=== PATIENT | female | born 1950 | race Two or more races ===

== ENCOUNTER 2017-11-16 13:37 | Inpatient (IN) | payer MEDICARE, OTHER ==
[~2017-11-16] VITALS: Ht 160 cm; Wt 65.8 kg
[2017-11-16 13:41] VITALS: BP 146/84
[2017-11-16] MEDS ORDERED: Morphine Sulfate 4mg/ml Inj IVP ONE ×2 (13:45→14:45)
--- NOTE | 2017-11-16 13:48 | Emergency Room Report ---
History of Present Illness General Chief Complaint: Abdominal Pain Source: Patient Present Illness HPI The patient presents with abdominal pain. Started yesterday. It's constant and 9/10 burning pressure epigastric not radiating. She's been vomiting bile- like material. She moved her bowels this morning - the stool was normal. There is no diarrhea. Patient denies dysuria. She feels cold but has no documented fevers. She states this is never happened to her before. No URI sy. No cough, shortness of breath, palpitations. She does feel weak. She has been out of her cardiac meds for 1-2 weeks. She denies prior IN or CHF. No rashes, headache, anxiety. H/O HTN. Denies diabetes though EMS lists as med problem.. Allergies: Coded Allergies: No Known Allergies (Unverified , 11/16/17) Patient History Past Medical History: see triage record Past Surgical History: other - R renal stent Social History: Reports: smoking - prior, alcohol use - social Social History Narrative retired - born in [place] Reviewed Nursing Documentation: PMH: Agreed; PSxH: Agreed Nursing Documentation-PMH Past Medical History: No History, Except For Hx Hypertension: Yes Review of Systems All Other Systems: negative except mentioned in HPI Physical Exam Vital Signs Date Time Temp Pulse Resp B/P (MAP) Pulse Ox O2 Delivery O2 Flow Rate FiO2 11/16/17 13:31 99.1 84 19 144/96 96 Room Air 99.1 Sp02 EP Interpretation: reviewed, normal General Appearance: alert, GCS 15, mild distress Head: normocephalic Eyes: bilateral eye normal inspection, bilateral eye PERRL ENT: moist mucus membranes - poor dentition Neck: supple Respiratory: lungs clear, normal breath sounds Cardiovascular #1: regular rate, rhythm Cardiovascular #2: 2+ radial (R) Gastrointestinal: no mass, non-distended, no guarding, no rebound, tenderness - epigastric, decreased bowel sounds Musculoskeletal: back normal, normal range of motion Neurologic: alert, motor strength/tone normal, DTRs symmetric, sensory intact, speech normal, oriented - X2 Psychiatric: anxious - in pain Skin: warm/dry, other - sallo Medical Decision Making Diagnostic Impression: Primary Impression: NSTEMI (non-ST elevated myocardial infarction) Additional Impressions: UTI (urinary tract infection) Qualified Codes: N30.00 - Acute cystitis without hematuria Abdominal pain Qualified Codes: R10.13 - Epigastric pain ER Course Patient presents with 2 days of epigastric abdominal pain. Differential includes gastritis, gastroenteritis, pancreatitis, peptic ulcer disease, gallbladder disease, acute myocardial infarction amongst others. The patient will be evaluated with an EKG, abdominal films, chest x-ray and labs. The patient will be treated with IV hydration, Zofran, Pepcid and morphine. EKG shows no injury. Chest x-ray is unremarkable. Abdominal films shows renal stent on the right-hand side and nonspecific bowel gas pattern. No free air. Elevated WBC and BUN. Pyuria. Rocephin begun. Lab called with positive troponin. The patient was given aspirin. She was still having pain and morphine was repeated. After that metoprolol was also given to the patient. The pain was quite improved. The patient was told diagnosis. Patient admitted [facility] under the care of Dr. Rosenberg. Laboratory Tests Test 11/16/17 13:45 11/16/17 14:25 11/16/17 17:55 White Blood Count 11.6 K/UL (4.8-10.8) H Red Blood Count 3.78 M/UL (4.20-5.40) L Hemoglobin 12.2 G/DL (12.0-16.0) Hematocrit 36.4 % (37.0-47.0) L Mean Corpuscular Volume 96 FL (80-99) Mean Corpuscular Hemoglobin 32.3 PG (27.0-31.0) H Mean Corpuscular Hemoglobin Concent 33.5 G/DL (32.0-36.0) Red Cell Distribution Width 12.0 % (11.6-14.8) Platelet Count 346 K/UL (150-450) Mean Platelet Volume 5.9 FL (6.5-10.1) L Neutrophils (%) (Auto) % (45.0-75.0) Lymphocytes (%) (Auto) % (20.0-45.0) Monocytes (%) (Auto) % (1.0-10.0) Eosinophils (%) (Auto) % (0.0-3.0) Basophils (%) (Auto) % (0.0-2.0) Differential Total Cells Counted 100 Neutrophils % (Manual) 88 % (45-75) H Lymphocytes % (Manual) 6 % (20-45) L Monocytes % (Manual) 6 % (1-10) Eosinophils % (Manual) 0 % (0-3) Basophils % (Manual) 0 % (0-2) Band Neutrophils 0 % (0-8) Platelet Estimate Adequate Platelet Morphology Normal Red Blood Cell Morphology Normal Prothrombin Time 10.1 SEC (9.30-11.50) Prothrombin Time INR 1.0 (0.9-1.1) PTT 25 SEC (23-33) Sodium Level 135 MMOL/L (136-145) L Potassium Level 4.0 MMOL/L (3.5-5.1) Chloride Level 101 MMOL/L (98-107) Carbon Dioxide Level 25 MMOL/L (21-32) Anion Gap 9 mmol/L (5-15) Blood Urea Nitrogen 24 mg/dL (7-18) H Creatinine 1.1 MG/DL (0.55-1.30) Estimate Glomerular Filtration Rate 49.6 mL/min (>60) Glucose Level 103 MG/DL (74-106) Calcium Level 10.3 MG/DL (8.5-10.1) H Total Bilirubin 1.5 MG/DL (0.2-1.0) H Direct Bilirubin 0.3 MG/DL (0.0-0.3) Aspartate Amino Transferase (AST) 38 U/L (15-37) H Alanine Aminotransferase (ALT) 36 U/L (12-78) Alkaline Phosphatase 92 U/L (46-116) Troponin I 0.058 ng/mL (0.000-0.056) 0.064 ng/mL (0.000-0.056) Total Protein 7.4 G/DL (6.4-8.2) Albumin 3.6 G/DL (3.4-5.0) Globulin 3.8 g/dL Albumin/Globulin Ratio 0.9 (1.0-2.7) L Lipase 212 U/L (73-393) Urine Color Pale yellow Urine Appearance Clear Urine pH 8 (4.5-8.0) Urine Specific [place] 1.010 (1.005-1.035) Urine Protein 3+ (NEGATIVE) H Urine Glucose (UA) Negative (NEGATIVE) Urine Ketones 2+ (NEGATIVE) H Urine Occult Blood 4+ (NEGATIVE) H Urine Nitrite Positive (NEGATIVE) H Urine Bilirubin Negative (NEGATIVE) Urine Urobilinogen Normal MG/DL (0.0-1.0) Urine Leukocyte Esterase 3+ (NEGATIVE) H Urine RBC 10-15 /HPF (0 - 2) H Urine WBC 40-60 /HPF (0 - 2) H Urine Squamous Epithelial Cells Few /LPF (NONE/OCC) Urine Bacteria Few /HPF (NONE) Total Creatine Kinase 344 U/L (26-308) H EKG Diagnostic Results Rate: normal Rhythm: NSR ST Segments: no acute changes Rhythm Strip Diag. Results EP Interpretation: yes Rhythm: NSR, no PVC's, no ectopy Chest X-Ray Diagnostic Results Chest X-Ray Diagnostic Results : Chest X-Ray Ordered: Yes # of Views/Limited/Complete: 1 View Indication: Other Interpretation: no consolidation, no effusion, no pneumothorax Impression: No acute disease Electronically Signed by: Electronically signed by Alejandro Mcleod MD Other X-Ray Diagnostic Results Other X-Ray Diagnostic Results : X-Ray ordered: abd # of Views/Limited Vs Complete: 1 View Indication: Pain EP Interpretation: Yes Interpretation: nonspecific bowel gas, no sbo, other - stent R kidney Impression: Other Electronically Signed by: Electronically signed by Alejandro Mcleod MD Last Vital Signs Date Time Temp Pulse Resp B/P (MAP) Pulse Ox O2 Delivery O2 Flow Rate FiO2 11/16/17 19:41 98.3 68 18 140/74 99 Room Air 98.3 Status: improved Disposition: ADMITTED INPATIENT Condition: Serious Alejandro Mcleod M.D. Nov 16, 2017 13:48
[2017-11-16 14:11] LABS: HEMATOCRIT 36.4 % (37.0-47.0); HEMOGLOBIN 12.2 G/DL (12.0-16.0); MEAN CORPUSCULAR VOLUME 96 FL (80-99); PLATELET COUNT 346 K/UL (150-450); RED BLOOD COUNT 3.78 M/UL (4.20-5.40); WHITE BLOOD COUNT 11.6 K/UL (4.8-10.8)
[2017-11-16 14:23] LABS: ANION GAP 9 mmol/L (5-15); BLOOD UREA NITROGEN 24 mg/dL (7-18); CALCIUM 10.3 MG/DL (8.5-10.1); CARBON DIOXIDE 25 MMOL/L (21-32); CHLORIDE 101 MMOL/L (98-107); CREATININE 1.1 MG/DL (0.55-1.30); SODIUM 135 MMOL/L (136-145)
[2017-11-16 14:33] LABS: ALANINE AMINOTRANSFERASE 36 U/L (12-78); ALBUMIN 3.6 G/DL (3.4-5.0); ALBUMIN/GLOBULIN RATIO 0.9 (1.0-2.7); ALKALINE PHOSPHATASE 92 U/L (46-116); ASPARTATE AMINO TRANSFERASE 38 U/L (15-37); BILIRUBIN,TOTAL 1.5 MG/DL (0.2-1.0)
[2017-11-16 14:35] LABS: BILIRUBIN,DIRECT 0.3 MG/DL (0.0-0.3)
[2017-11-16 14:54] LABS: APPEARANCE,URINE CLEAR; BILIRUBIN, URINE NEGATIVE (NEGATIVE); COLOR,URINE PALE YELLOW; GLUCOSE, URINE (UA) NEGATIVE (NEGATIVE); KETONES,URINE 2+ (NEGATIVE); LEUKOCYTE ESTERASE ,URINE 3+ (NEGATIVE); NITRITE,URINE POSITIVE (NEGATIVE); PH,URINE 8 (4.5-8.0); PROTEIN,URINE 3+ (NEGATIVE); UROBILINOGEN,URINE NORMAL MG/DL (0.0-1.0)
[2017-11-16] MEDS: Metoprolol 5mg/5ml Inj IVP SCH ×3 (15:15→15:40)
[2017-11-16] MEDS ORDERED: cefTRIAXone 1 GM in NS 55 ML IVPB ONE (15:30)
[2017-11-16 16:00] VITALS: BP 127/72
[2017-11-16] MEDS ORDERED: LORazepam 1mg tab ORAL PRN (16:15)
[2017-11-16] MEDS ORDERED: Morphine Sulfate 2mg/ml Inj IVP PRN (16:15)
[2017-11-16] MEDS ORDERED: Morphine Sulfate 4mg/ml Inj IVP PRN (16:15)
[2017-11-16] MEDS ORDERED: Nitroglycerin Subl 0.4mg tab SL PRN (16:15)
[2017-11-16] MEDS ORDERED: Acetaminophen 650 MG SUPP RECTAL PRN ×2 (16:15)
[2017-11-16] MEDS: Lisinopril 20mg tab ORAL SCH (16:46)
[2017-11-16 18:00] VITALS: BP 148/80
[2017-11-16 19:31] LABS: CREATINE KINASE 344 U/L (26-308)
[2017-11-16 19:41] VITALS: BP 140/74
[2017-11-16] MEDS ORDERED: NORCO 10-325 T1 EACH ORAL (19:53)
[2017-11-16 20:20] VITALS: BP 133/83
[2017-11-16] MEDS ORDERED: Milk of Magnesia 30ml Ud ORAL PRN (21:00)
--- NOTE | 2017-11-16 22:00 | History and Physical Report ---
DATE OF ADMISSION: 11/16/2017 CHIEF COMPLAINT/REASON FOR HOSPITALIZATION: The patient admitted with abdominal pain, possible chest pain, possible acute myocardial infarction. HISTORY OF PRESENT ILLNESS: The patient is a 67-year-old lady, born in [place] who has a history of hypertension and urinary stent and prior UTIs. She states she is having epigastric and suprapubic pain and she has had pyuria. She had elevated troponin in the emergency room of 0.058. There is no prior history of coronary disease, but she has a history of hypertension. She has been out of medications apparently for quite some time due to insurance issues. SURGICAL HISTORY: Tonsillectomy and ureteral stent. MEDICATIONS AT HOME: Include lisinopril 40 mg daily, isosorbide 5 mg b.i.d. and atenolol 50 mg daily, all of which she is not taking for quite some time. ALLERGIES: None known. HABITS: She smoked occasionally, was not a regular smoker, but has had secondhand smoker. Alcohol, social. Drugs, none. REVIEW OF SYSTEMS: HEAD, EYES, EARS, NOSE, AND THROAT: Vision and hearing is good. ENDOCRINE: No known diabetes or thyroid disease. PULMONARY: No asthma, TB, or chronic cough. CARDIAC: See history of present illness. No history of cardiac events. GASTROINTESTINAL: She has had some epigastric pains. Recent nausea and vomiting. No hematochezia or melena. GENITOURINARY: She had urinary frequency, dysuria and incontinence. Addendum - she has had renal stone before apparently. NEUROLOGIC: No CVA, syncope or seizures. PHYSICAL EXAMINATION: GENERAL: The patient is an alert, well-developed lady, in no acute distress. VITAL SIGNS: Temperature 99.1 degrees, pulse 84, blood pressure 145/69, and pulse oximetry 96% on room air. HEAD, EYES, EARS, NOSE, AND THROAT: Sclerae are nonicteric. Ocular motions intact in all directions. She is edentulous. NECK: No adenopathy or thyroid enlargement. LUNGS: Clear. HEART: Regular rhythm. No murmur. ABDOMEN: Soft without organomegaly. There is minimal suprapubic tenderness. Liver and spleen and epigastric showed no tenderness. NEUROLOGIC: She is alert and oriented. Cranial nerves are intact. EXTREMITIES: No edema, cyanosis, or clubbing. LABORATORY AND DIAGNOSTIC DATA: Pertinent labs showed normal electrolytes, glucose 103, calcium 10.3, total bilirubin 1.5. AST 38. Troponin 0.058. Lipase 212. White count 11.6 and hemoglobin is 12.2. Urine shows 40 to 60 white cells and 10 to 15 red cells per high-power field. Chest x-ray shows some mild pulmonary vascular redistribution. EKG normal. IMPRESSION: 1. Borderline troponin, possible acute coronary syndrome versus non-coronary cause of . 2. Epigastric pain. 3. Mild elevation of bilirubin. 4. Suprapubic pain and pyuria. 5. History of ureteral stent. PLAN: The patient will be treated as acute acute coronary syndrome with a cardiology consultation. We will also check abdominal ultrasound, give her treatment for possible UTI, possible cholecystitis. The patient's condition is complex. She will be watched closely on the telemetry unit. Reza Rosenberg M.D. DR: HILLARY JOB#: [id number] CC:
[2017-11-16] MEDS: Metoprolol 25mg tab ORAL SCH (22:14)
[2017-11-16] MEDS: Heparin 5000 units/ml inj SUBQ SCH (22:15)
[2017-11-16] MEDS: Augmentin 875mg Tab ORAL SCH (22:36)
[2017-11-17] VITALS: BP 146/82
[2017-11-17 04:00] VITALS: BP 116/54
--- NOTE | 2017-11-17 04:15 | Consultation ---
DATE OF CONSULTATION: 11/16/2017 CARDIOLOGY CONSULTATION REQUESTING PHYSICIAN: Reza Rosenberg M.D. REASON FOR CONSULTATION: Elevated troponin level. HISTORY OF PRESENT ILLNESS: This 67-year-old Stateless [place] female presented to the emergency room complaining of midepigastric, suprapubic and possible chest pain. She was noted to have a troponin level of 0.058. There is no prior history of coronary disease, but the patient has risk factors including hypertension. PAST MEDICAL HISTORY: Hypertension and history of urinary stent with multiple urinary tract infections. MEDICATIONS: Previously prescribed include lisinopril, isosorbide, and atenolol, although she has not been taking any medications for quite sometime as she has not been able to get them. ALLERGIES: None known. SOCIAL HISTORY: Occasional smoking. Significant secondhand smoke. Social alcohol. No illicit drug use. FAMILY HISTORY: Noncontributory. REVIEW OF SYSTEMS: No loss of vision or hearing. No known history of diabetes or thyroid disorder. No history of seizures or stroke. No known prior history of myocardial infarction, endocarditis, or rheumatic heart disease. No history of irregular heartbeat. Cholesterol parameters not known. There is no history of melena, bright red blood per rectum, or change in bowel habits. PHYSICAL EXAMINATION: GENERAL: Awake, alert, in no distress. VITAL SIGNS: Temperature 99.1 degrees, blood pressure 145/69, heart rate 84, respiratory rate 18, and room air oxygen saturation 96%. HEENT: Normocephalic and atraumatic. Conjunctivae pink. Sclerae are anicteric. Oropharynx clear. Edentulous. NECK: Supple. Jugular venous pressure normal. LUNGS: Clear. CARDIAC: Regular rhythm and rate. Normal S1 and S2 with no murmur, rub, or gallop. ABDOMEN: Soft and nontender. EXTREMITIES: Good pulses. No edema. NEUROLOGIC: Nonfocal. LABORATORY AND DIAGNOSTIC DATA: Troponin is 0.058. White count 11.6 and hemoglobin 12.2. Chest x-ray reveals mild pulmonary venous congestion. EKG reveals sinus rhythm with no acute abnormalities. Lipase level is slightly elevated, 212. IMPRESSION: The patient presents with symptoms not typical for acute coronary insufficiency and has a minimally elevated troponin level with some risk factors for coronary disease as well. She possibly has an acute coronary syndrome or noncoronary etiology for this troponin elevation. She needs to be monitored closely in at this time. Other concerns include her epigastric pain, suprapubic pain, and pyuria suggesting urinary infection in the setting of ureteral stent. Hypertension is controlled at this time. PLAN: 1. Cardiac monitoring. 2. Antiplatelet therapy. 3. Antihypertensives. 4. Lipid panel. 5. Serial troponin levels. 6. Antimicrobials per the primary physician. 7. Beta-vadim therapy as well. Alejandro De Anda M.D. DR: Dano JOB#: [id number] CC:
[2017-11-17 04:42] LABS: HEMATOCRIT 31.9 % (37.0-47.0); HEMOGLOBIN 10.8 G/DL (12.0-16.0); MEAN CORPUSCULAR VOLUME 97 FL (80-99); PLATELET COUNT 291 K/UL (150-450); RED BLOOD COUNT 3.28 M/UL (4.20-5.40); RED CELL DISTRIBUTION WIDTH 12.8 % (11.6-14.8); WHITE BLOOD COUNT 10.2 K/UL (4.8-10.8)
[2017-11-17 05:30] LABS: ALANINE AMINOTRANSFERASE 30 U/L (12-78); ALBUMIN 2.8 G/DL (3.4-5.0); ALBUMIN/GLOBULIN RATIO 0.8 (1.0-2.7); ALKALINE PHOSPHATASE 75 U/L (46-116); ANION GAP 9 mmol/L (5-15); ASPARTATE AMINO TRANSFERASE 24 U/L (15-37); BILIRUBIN,TOTAL 1.3 MG/DL (0.2-1.0); BLOOD UREA NITROGEN 16 mg/dL (7-18); CALCIUM 9.7 MG/DL (8.5-10.1); CARBON DIOXIDE 23 MMOL/L (21-32); CHLORIDE 105 MMOL/L (98-107); CHOLESTEROL 176 MG/DL (< 200); CREATINE KINASE 185 U/L (26-308); CREATININE 1.1 MG/DL (0.55-1.30); HDL CHOLESTEROL 65 MG/DL (40-60); POTASSIUM 3.9 MMOL/L (3.5-5.1); SODIUM 137 MMOL/L (136-145); TRIGLYCERIDES 43 MG/DL (30-150)
[2017-11-17 05:57] LABS: BILIRUBIN,DIRECT 0.2 MG/DL (0.0-0.3)
[2017-11-17] MEDS: Lisinopril 20mg tab ORAL SCH ×2 (06:28→12:16)
[2017-11-17 08:00] VITALS: BP 116/57
[2017-11-17] MEDS: Metoprolol 25mg tab ORAL SCH (09:00)
[2017-11-17] MEDS ORDERED: Aspirin Baby 81mg ORAL SCH (09:00)
--- NOTE | 2017-11-17 09:01 | Diagnostic Imaging Report ---
Indication: Chest pain Technique: One view of the chest Comparison: none Findings: There are multiple healed right rib fracture deformities. The lungs and pleural spaces are clear. The heart size is normal. The aorta is tortuous. Upper mediastinum is unremarkable Impression: No acute process
--- NOTE | 2017-11-17 09:09 | Diagnostic Imaging Report ---
Indication: Abdominal pain Technique: Supine view of the abdomen Comparison: none Findings: There is a right nephroureteral stent. Centered within the proximal pigtail is a calculus which also extends slightly to the periphery of the pigtail of the catheter is well, measures approximately 2 cm diameter. Surrounding the distal pigtail is a large bladder calculus which measures 4.5 x 3.4 cm, with a tail extending to the ureteral orifice. The bowel gas pattern is unremarkable. Impression: No acute abnormality Right nephroureteral stent in place Large bladder calculus, presumably surrounding the distal end of the stent Large right renal calculus, appears to be related to the proximal end of the stent
[2017-11-17] MEDS: Augmentin 875mg Tab ORAL SCH (09:25)
[2017-11-17] MEDS: Heparin 5000 units/ml inj SUBQ SCH (09:27)
[2017-11-17 12:00] VITALS: BP 132/73
--- NOTE | 2017-11-17 14:17 | Diagnostic Imaging Report ---
Indication: Abdominal pain, vomiting, abnormal bilirubin Technique: Soto-scale and duplex images of the upper abdomen were obtained Comparison: Reference made to plain radiograph of 11/16/2017 Findings: Gallbladder demonstrates mild wall thickening. No definite stones or pericholecystic fluid. Common bile duct measures 9 mm in diameter. There is intrahepatic biliary ductal dilatation also noted. Liver demonstrates coarsened echogenicity, no focal abnormality. Portal vein and hepatic veins are patent. Pancreas is unremarkable. Spleen is unremarkable. Left kidney measures 11 cm in length. Right kidney measures 9.8 cm length. Both kidneys demonstrate normal echogenicity. There is mild left hydronephrosis and moderate right hydronephrosis. Shadowing from the right renal calculus demonstrated on recent radiograph is demonstrated. There are one or urinary bladder calculi. The smaller of these appears to be at the right ureteral orifice. A left ureteral jet is demonstrated. Non-aneurysmal abdominal aorta . Impression: Bilateral hydronephrosis, right greater than left. Absence of the right ureteral jet and the right hydronephrosis indicates likely malfunction of the right ureteral stent demonstrated on recent plain radiograph Bladder calculus or calculi, larger appearing to project into the right ureteral orifice, concordant with the appearance on recent plain radiograph Mild gallbladder wall thickening but no definite stones. Significance of the wall thickening uncertain, but the possibility of acute cholecystitis, either a calculus or due to an occult stone, should be considered. Consider further evaluation with nuclear medicine hepatobiliary scan Extrahepatic and intrahepatic biliary ductal dilatation. Possibly downstream biliary obstruction be considered. Coarsened hepatic echogenicity, consistent with hepatocellular disease, nonspecific as regards etiology. Findings discussed by phone with Dr. Rosenberg at the time of interpretation
[2017-11-17] MEDS ORDERED: TOPROL XL25 MG ORAL (15:41)
[2017-11-17] MEDS ORDERED: FAMOTIDINE20 MG ORAL (15:41)
[2017-11-17] MEDS ORDERED: AMOX TR-K CLV1 EAC2 ORAL (15:41)
[2017-11-17] MEDS ORDERED: ASPIRIN81 MG ORAL (15:41)
[2017-11-17 16:00] VITALS: BP 112/57
--- NOTE | 2017-11-17 18:44 | Cardiology Report ---
APPROVED REPORT EXAM: Two-dimensional and M-mode echocardiogram with Doppler and color Doppler. INDICATION Acute myocardial infarction M-Mode DIMENSIONS IVSd1.3 (0.7-1.1cm)Left Atrium (MM)2.9 (1.6-4.0cm) LVDd4.0 (3.5-5.6cm)Aortic Root2.7 (2.0-3.7cm) PWd1.0 (0.7-1.1cm)Aortic Cusp Exc.1.9 (1.5-2.0cm) LVDs2.6 (2.5-4.0cm) PWs1.4 cm Normal left ventricular chamber size, systolic function and wall motion. Left ventricular ejection fraction estimated to be 55 %. Mild left ventricular hypertrophy. Anterior Echo-free space, may be due to pericardial fat or effusion. Mild left atrial enlargement. Right cardiac chamber sizes are within normal limits. Focal aortic valve sclerosis with adequate cusp excursion. Mildly thickened mitral valve leaflets with normal excursion. Mild mitral annulus and aortic root calcification. Normal pulmonic valve structure. Normal tricuspid valve structure. IVC dilated at 2.2 cm with physiological collapse. A color flow and spectral Doppler study was performed and revealed: No aortic insufficiency. Mild mitral regurgitation. Mitral inflow velocities indicates possible pseudo normalization pattern implying significant left ventricular diastolic dysfunction (Grade II). Mild to moderate tricuspid regurgitation. Tricuspid systolic velocities suggests peak right ventricular systolic pressure of 56 mmHg, consistent with moderate pulmonary hypertension. No pulmonic regurgitation present.
--- NOTE | 2017-11-18 05:46 | Progress Note ---
DATE: 11/17/2017 CARDIOLOGY PROGRESS NOTE SUBJECTIVE: The patient is without chest pain and shortness of breath. She has cough and congestion. The CK-MB is negative. Total CK 185. Troponins remained at 0.057. Echocardiogram unremarkable other than degenerative valve regurgitation. OBJECTIVE: VITAL SIGNS: Blood pressure 132/73, pulse 56, and respirations 20. Monitored sinus bradycardia. LUNGS: With few rhonchi. CARDIAC: Regular rhythm. Slow rate. Normal S1, S2. ABDOMEN: Soft. EXTREMITIES: No edema. IMPRESSION: 1. False positive troponin level. No signs of acute myocardial infarction. 2. Degenerative valve disease. 3. Sinus bradycardia due to beta blockers. 4. Asymptomatic urinary tract infection. PLAN: 1. Antimicrobials. 2. Decrease beta-vadim dosing. 3. Titrate antihypertensives as high as an outpatient. 4. Maintain anti-platelet therapy. 5. Stable for outpatient followup. 6. We will pursue a stress study once infection has been controlled. Alejandro De Anda M.D. DR: WILD JOB#: [id number] CC:
--- NOTE | 2017-11-18 10:00 | Discharge Summary ---
DATE OF ADMISSION: 11/16/2017 DATE OF DISCHARGE: 11/17/2017 PERTINENT HISTORY: The patient presents with epigastric and suprapubic pain and possible chest pain. The patient had no medications recently. She presents with epigastric pain and questionable chest pain. She also has suprapubic pain. She has had a ureteral stent. PERTINENT PHYSICAL FINDINGS: LUNGS: Clear. HEART: Regular rhythm. ABDOMEN: Soft with minimal epigastric and suprapubic tenderness. COURSE IN THE HOSPITAL: The patient was hydrated and given comfort measures, started on antibiotics for urinary tract infection. She was seen by Dr. Alejandro De Anda in Cardiology consultation. Troponin is 0.064 and 0.057 with a CK of 344 and may have been a false positive troponins. There are no acute EKG changes. She did have a urinary tract infection and was started on Augmentin. Pending final cultures. Ultrasound showed kidney and bladder stones and hydronephrosis and a ureteral stent that may be blocked on the right. The patient was informed of all of the above. I was contacted by her medical group, and I spoke to a physician, . he was able to arrange outpatient follow-up through his medical group. FINAL DIAGNOSES: 1. Chest pain, possible acute coronary syndrome with borderline troponins. 2. Urinary tract infection with gram-negative bacilli. 3. Nephrolithiasis. 4. Bladder stones. 5. Hydronephrosis and likely obstructed ureteral stent. 6. Gastritis. 7. Hypertension. DISCHARGE DISPOSITION: Discharged on a low-salt diet. Augmentin 875 mg q.12 hours for 10 days, aspirin 81 mg daily, Pepcid 20 mg b.i.d., and metoprolol extended release 25 mg daily. FOLLOWUP: Follow up by her medical group. Reza Roesnberg M.D. DR: STEPHANIE/IZZY JOB#: [id number] CC:
== END 2017-11-17 17:34 | disposition home or self-care (01) | DRG 311 ==
LOC: EDBD 13:37 → EMR 15:08 → EDBEDREQ 15:56 → 2W 18:14
DX: I24.9 Acute ischemic heart disease, unspecified (principal); N13.30 Unspecified hydronephrosis; I10 Essential (primary) hypertension; N39.0 Urinary tract infection, site not specified; F17.200 Nicotine dependence, unspecified, uncomplicated; N20.0 Calculus of kidney; N21.0 Calculus in bladder; K29.70 Gastritis, unspecified, without bleeding; E80.6 Other disorders of bilirubin metabolism; R00.1 Bradycardia, unspecified; T44.7X5A Adverse effect of beta-adrenoreceptor antagonists, initial encounter; Y92.9 Unspecified place or not applicable
CPT/HCPCS: 36415; 71045; 74018; 76700; 80053; 80061; 81003; 82248; 82550; 82553; 82962; 83036; 83690; 83735; 84443; 84484; 85007; 85025; 85610; 85730; 87086; 87181; 93005; 93306; 99285; J2405